=== PATIENT | male | born 1995 | race Two or more races ===

== ENCOUNTER 2023-02-27 02:01 | Emergency (ER) | payer MEDICAID, OTHER ==
[~2023-02-27] VITALS: Ht 170.2 cm; Wt 95.4 kg
[2023-02-27 02:59] VITALS: BP 150/95; PULSE 101; RESP 20; O2SAT 97
== END 2023-02-27 06:57 | disposition left against medical advice (07) ==
LOC: ER 02:01
DX: F41.9 Anxiety disorder, unspecified (principal); Z53.21 Procedure and treatment not carried out due to patient leaving prior to being seen by health care provider